=== PATIENT | male | born 1995 | race Native Hawaiian/Other Pacific Islander ===

== ENCOUNTER 2024-07-13 11:48 | Emergency (ER) | payer BC ==
[~2024-07-13] VITALS: Ht 188 cm; Wt 127.5 kg
[2024-07-13 12:56] VITALS: BP 133/99; PULSE 102; RESP 18; TEMP 99.8; O2SAT 98
--- NOTE | 2024-07-13 13:24 | ED.PDOC ---
Musculoskeletal HPI Comments 28-year-old male patient presents to the clinic for pain to the right knee. Patient reports that he was at work and at the end of the day he started to have pain and swelling to the right knee. Patient denies any injury or trauma. Patient states that this started on Friday. Patient reports that 2 days later the swelling became significantly worse. Patient states that swelling has decreased today. Patient has significant swelling superior to the right patella. Patient has tenderness with palpation. Patient has decreased flexion of the right knee. Patient has pain when ambulating. No erythema, ecchymosis noted. No deformity noted Chief Complaint: Lower Extremity Time Seen by MD: 12:12 Primary Care Provider: NONE Reviewed Notes: Nurses Notes Allergies: Coded Allergies: NO KNOWN ALLERGIES (Unverified , 07/21/12) Home Meds Active Scripts Ibuprofen (Ibuprofen) 800 Mg Tab, 1 TAB PO TID PRN for 30 Days, #90 TAB 1 Refill Prov:OBEY KEITH [facility] 07/13/24 Hydrocodone-Acetaminophen (Hydrocodone Bitartrate/AC 10-325 mg) 1 Tab Tab, 1 TAB PO Q6HP PRN for 3 Days, #12 TAB 0 Refills Prov:BRODY KEITHANNE [facility] 07/13/24 Mode of Arrival: Ambulatory Family History Family History: Reviewed,noncontributory to illness, Unobtainable Social History Lives In: Home Constitutional: denies: chills, diaphoresis, fatigue, fever, malaise, sweats, weakness, others EENTM: denies: blurred vision, double vision, ear bleeding, ear discharge, ear drainage, ear pain, ear ringing, eye pain, eye redness, hearing loss, mouth pain, mouth swelling, nasal discharge, nose bleeding, nose congestion, nose pain, photophobia, tearing, throat pain, throat swelling, voice changes, others Respiratory: denies: cough, hemoptysis, orthopnea, SOB at rest, shortness of breath, SOB with excertion, stridor, wheezing, others Cardiovascular: denies: chest pain, dizzy spells, diaphoresis, Dyspnea on exertion, edema, irregular heart beat, left arm pain, lightheadedness, palpitations, PND, syncope, others Gastrointestinal: denies: abdomen distended, abdominal pain, blood streaked bowels, constipated, diarrhea, dysphagia, difficulty swallowing, hematemesis, m edson, nausea, poor appetite, poor fluid intake, rectal bleeding, rectal pain, vomiting, others Genitourinary: denies: burning, dysuria, flank pain, frequency, hematuria, incontinence, penile discharge, penile sore, pain, testicle pain, testicle swelling, urgency, others Neurological: denies: dizziness, fainting, headache, left sided numbness, left sided weakness, numbness, paresthesia, pre-existing deficit, right sided numbness, right sided weakness, seizure, speech problems, tingling, tremors, weakness, others Musculoskeletal: reports: joint pain (Right knee), joint swelling (Right knee) Integumetry: denies: bruises, change in color, change in hair/nails, dryness, laceration, lesions, lumps, rash, wounds, others Allergic/Immunocompromised: denies: Difficulty Healing, Frequent Infections, Hives, Itching, others Hematologic/Lymphatic: denies: anemia, blood clots, easy bleeding, easy bruising, swollen glands, others Endocrine: denies: excessive hunger, excessive sweating, excessive thirst, excessive urination, flushing, intolerance to cold, intolerance to heat, unexpla ined weight gain, unexplained weight loss, others Psychiatric: denies: anxiety, bipolar disorder, depression, hopeless, panic disorder, schizophrenia, sleepless, suicidal, others All Other Systems: Reviewed and Negative Physical Exam General Appearance: No Apparent Distress, Normal HEENT: Normal ENT Inspection, Pharynx Normal, TMs Normal Neck: Full Range of Motion, Non-Tender, Normal, Normal Inspection Respiratory: Chest Non-Tender, Lungs Clear, No Accessory Muscle Use, No Respiratory Distress, Normal Breath Sounds Cardiovascular: No Edema, No JVD, No Murmur, No Gallop, Normal Peripheral Pulses, Regular Rate/Rhythm Breast Exam: Deferred Gastrointestinal: No Organomegaly, Non Tender, No Pulsatile Mass, Normal Bowel Sounds, Soft Genitalia: Deferred Pelvic: Deferred Rectal: Deferred Extremities: No calf tenderness, Normal capillary refill, Normal inspection, Normal range of motion, Non-tender, No pedal edema Musculoskeletal : Location: Right Apperance: Swelling (Significant swelling superior to the right patella), Limited ROM (Decreased flexion of the right knee due to pain), Tenderness: Moderate (Right knee) Neurologic: Alert, 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 Was a procedure done?: No Differential Diagnosis EXT Differential Diagnosis: Cellulitis, Fracture, Sprain, Dislocation, Strain, Bursitis X-Ray, Labs, Meds, VS Vital Signs Date Time Temp Pulse Resp B/P (MAP) Pulse Ox O2 Delivery O2 Flow Rate FiO2 07/13/24 12:56 102 18 98 Room Air 07/13/24 12:56 99.8 102 18 133/99 (110) 98 99.8 07/13/24 12:20 99.8 102 18 133/94 (107) 98 Current Medications Medications (Trade) Dose Ordered Sig/Ronel Route Start Time Stop Time Status Last Admin Acetaminophen/ Hydrocodone Bitart (Linn 10/325MG Tab) 1 tab ONCE ONCE PO 07/13/24 13:30 07/13/24 13:44 DC 07/13/24 13:49 Ketorolac Tromethamine (Toradol Injection) 60 mg ONCE ONCE IM 07/13/24 13:30 07/13/24 13:44 DC 07/13/24 13:50 PATIENT: AMANDA ROBERSONCCT: [id number]: [id number] : 1995 LOC: ER ROOM / BED: / AGE / SEX: 28 / M ADM STATUS: REG ER SERVICE 1321 ORDERING PHYSICIAN: OBEY KEITH [employer] PROCEDURE(s): RKN3 - R KNEE 3V XRAY REASON: swellin, right knee ORDER NUMBER(s): [id number], ACCESSION NUMBER(s): [id number] CLINICAL INDICATION: swellin, right knee TECHNIQUE: XY R KNEE 3V XRAY Comparison: None FINDINGS/IMPRESSION: : 1. No acute fracture or significant degenerative changes of the right knee. 2. Large right knee effusion accumulates in the suprapatellar pouch, suggestive of internal derangement. Consider follow-up noncontrast MRI of the right knee for evaluation of the ligaments and menisci. ATED BY: RASHMI LERMA MD DICTATED DATE/TIME: 07/13/24 1403 SIGNED BY: RASHMI LERMA MD SIGNED DATE/TIME: 07/13/24 1403 CC: X-Ray, Labs, Meds, VS Comment On re-evaluation patient has symptomatic improvement. Patient is stable for discharge at this time. All test results and diagnostic imaging have been interpreted. All diagnostic findings, discharge care, and education instruction provided to the patient. Follow-up with PCP in 2-3 days Patient verbalized understanding, discharge instructions and agrees to treatment plan Vital signs are stable Patient is ambulatory Patient advised of which symptoms necessitate a return visit to the emergency room. Patient to return emergency room for any new worsening symptoms. Patient is aware that the purpose of this visit is for an acute medical emergency requiring emergent stabilization. Chronic conditions, including malignancies have not been ruled out. Patient is instructed to follow up with PCP as directed for continued care and workup. If unable to arrange follow up, patient is to return to the emergency room for reassessment. Patient was given verbal and written discharge instructions and acknowledges understanding Time of 1ST Reevaluation: 14:30 Reevaluation 1ST: Improved Patient Education/Counseling: Diagnosis, Treatment, Prognosis Family Education/Counseling: No Family Present Departure 1 Departure Time of Disposition: 14:48 Impression: Primary Impression: Effusion, right knee Disposition: 01 HOME / SELF CARE / HOMELESS Condition: Stable e-Prescriptions Ibuprofen (Ibuprofen) 800 Mg Tab 1 TAB PO TID PRN for 30 Days, #90 TAB 1 Refill Prov: OBEY KEITH [facility] 07/13/24 Hydrocodone-Acetaminophen (Hydrocodone Bitartrate/AC 10-325 mg) 1 Tab Tab 1 TAB PO Q6HP PRN for 3 Days, #12 TAB 0 Refills Prov: BRODY KEITHANNE [facility] 07/13/24 Discharged With: Self Critical Care Note Critical Care Time?: No Stability Stability form required: No Heart Score Heart Score: Heart Score Response (Comments) Value History N/A 0 EKG N/A 0 Age N/A 0 Risk Factors N/A 0 Troponin N/A 0 Total 0 OBEY KEITH [employer] Jul 13, 2024 13:24
[2024-07-13] MEDS: HYDROcodone-ACET 10/325MG TAB PO ONE (13:49)
[2024-07-13] MEDS: KETOROLAC TROMETH 60MG/2ML VIAL IM ONE (13:50)
--- NOTE | 2024-07-13 14:05 | DVH ---
CLINICAL INDICATION: swellin, right knee TECHNIQUE: XY R KNEE 3V XRAY Comparison: None FINDINGS/IMPRESSION: : 1. No acute fracture or significant degenerative changes of the right knee. 2. Large right knee effusion accumulates in the suprapatellar pouch, suggestive of internal derangeme nt. Consider follow-up noncontrast MRI of the right knee for evaluation of the ligaments and menisci .
[2024-07-13] MEDS ORDERED: IBUP-1456 PO (14:51)
[2024-07-13] MEDS ORDERED: HYDR-4798 PO (14:51)
== END 2024-07-13 14:56 | disposition home or self-care (01) ==
LOC: ER 11:48
DX: M25.461 Effusion, right knee (principal); Z79.899 Other long term (current) drug therapy
CPT/HCPCS: 73562; 96372; 99283; J1885